=== PATIENT | female | born 1990 | race Caucasian/White ===

== ENCOUNTER 2017-08-22 03:51 | Emergency (ER) | payer OTHER ==
[2017-08-22] MEDS ORDERED: Metoclopramide IV* 5 MG/ML 2 ML VIAL IV ONE (04:12)
[2017-08-22] MEDS ORDERED: Ketorolac INJ* 30 MG/ML 1 ML VIAL IV ONE (04:12)
[2017-08-22] MEDS ORDERED: NS 0.9% 1000 ML* 1,000 ML IV ONE (04:12)
[2017-08-22] MEDS ORDERED: Morphine INJ* 4 MG/ML 1 ML CARPUJECT IV ONE (04:16)
[2017-08-22 05:03] LABS: Hematocrit 40 % (35-47); Hemoglobin 13.5 g/dl (12.0-16.0); Mean Corpuscular HGB Conc 34 g/dl (31-36); Mean Corpuscular Hemoglobin 29 pg (27-31); Mean Corpuscular Volume 87 fL (80-97); Mean Platelet Volume 10 um3 (7.4-10.4); Red Cell Distribution Width 13 % (10.5-15); White Blood Count 10.6 10^3/ul (3.5-10.8)
[2017-08-22 05:14] LABS: ALT 18 U/L (7-52); Albumin 4.1 g/dL (3.2-5.2); Alkaline Phosphatase 59 U/L (34-104); BUN/Creatinine Ratio 14.9 (8-20); Blood Urea Nitrogen 10 mg/dL (6-24); C Reactive Protein < 1.00 mg/L (< 5.00); CO2 Carbon Dioxide 17 mmol/L (22-32); Calcium 9.4 mg/dL (8.6-10.3); Chloride 105 mmol/L (101-111); EGFR African American 134.8 (>60); EGFR Non-African American 104.8 (>60); Globulin 3.4 g/dL (2-4); Glucose 89 mg/dL (70-100); Sodium 134 mmol/L (133-145); Total Protein 7.5 g/dL (6.4-8.9)
[2017-08-22 05:18] LABS: Anion Gap 12 mmol/L (2-11)
[2017-08-22 05:37] LABS: Urine Bacteria 1+ (Absent); Urine Bilirubin Negative (Negative); Urine Glucose Negative (Negative); Urine Nitrite Negative (Negative)
[2017-08-22] MEDS ORDERED: Tamsulosin CAP* 0.4 MG PO ONE (06:27)
--- NOTE | 2017-08-22 06:40 | ED ---
Augusto Fermin Thomas, scribed for Nelson Kovacs MD on 08/22/17 at 0419 . Back Pain - HPI Summary HPI Summary: The pt is a 27 y/o F presenting to the ED c/o right flank pain starting at 16: 00 on 08/21/17. The pain radiates to her back and RLQ. Her pain has lessened since onset at 16:00. She took OTC medicine to no relief. Pt additionally c/o nausea, vomiting (2x), and SOB. Pt denies renal calculi. Her LNMP was one week ago. She has no surgical history. - History of Current Complaint Chief Complaint: EDFlankPain Stated Complaint: FLANK PAIN Hx Obtained From: Patient Onset/Duration: Lasting Hours - since 16:00 on 08/21/17, Still Present Back Pain Location: Is Diffuse, Radiates To - flank and RLQ Severity Currently: Moderate Pain Intensity: 8 Pain Scale Used: 0-10 Numeric Aggravating Symptom(s): Nothing Associated Signs And Symptoms: Positive: Abdominal Pain, Flank Pain, Other - nausea, vomitting, SOB, NEGATIVE: renal calculi - Allergies/Home Medications Allergies/Adverse Reactions: Allergies Allergy/AdvReac Type Severity Reaction Status Date / Time No Known Allergies Allergy Verified 08/22/17 03:58 PMH/Surg Hx/FS Hx/Imm Hx Previously Healthy: Yes Endocrine/Hematology History: Denies: Hx Diabetes Cardiovascular History: Denies: Hx Hypertension, Hx Myocardial Infarction Infectious Disease History: No Infectious Disease History: Denies: Traveled Outside the [place] in Last 30 Days - Family History Known Family History: Negative: Cardiac Disease, Hypertension, Diabetes - Social History Alcohol Use: Occasionally Hx Substance Use: No Substance Use Type: Reports: None Hx Tobacco Use: Yes Smoking Status (MU): Light Every Day Tobacco Smoker Review of Systems Negative: Fever Positive: Shortness Of Breath Positive: Abdominal Pain - RLQ, Vomiting - 2x, Nausea, Other - NEGATIVE: renal calculi All Other Systems Reviewed And Are Negative: Yes Physical Exam - Summary Physical Exam Summary: VITAL SIGNS: Reviewed. GENERAL: Patient is a well-developed and nourished female who is lying comfortable in the stretcher. Patient is not in any acute respiratory distress. HEAD AND FACE: No signs of trauma. No ecchymosis, hematomas or skull depressions. No sinus tenderness. EYES: PERRLA, EOMI x 2, No injected conjunctiva, no nystagmus. EARS: Hearing grossly intact. Ear canals and tympanic membranes are within normal limits. MOUTH: Oropharynx within normal limits. NECK: Supple, trachea is midline, no adenopathy, no JVD, no carotid bruit, no c- spine tenderness, neck with full ROM. CHEST: Symmetric, no tenderness at palpation LUNGS: Clear to auscultation bilaterally. No wheezing or crackles. CVS: Regular rate and rhythm, S1 and S2 present, no murmurs or gallops appreciated. ABDOMEN: The patient has mild RLQ tenderness. There is right CVA tenderness. No signs of distention. No rebound no guarding, and no masses palpated. Bowel sounds are normal. EXTREMITIES: FROM in all major joints, no edema, no cyanosis or clubbing. NEURO: Alert and oriented x 3. No acute neurological deficits. Speech is normal and follows commands. SKIN: Dry and warm Triage Information Reviewed: Yes Vital Signs On Initial Exam: Initial Vitals Temp Pulse Resp BP Pulse Ox 98.3 F 87 16 90/65 98 08/22/17 03:54 08/22/17 03:54 08/22/17 03:54 08/22/17 03:54 08/22/17 03:54 Vital Signs Reviewed: Yes - [place] Coma Scale Coma Scale Total: 15 Diagnostics - Vital Signs Vital Signs Temp Pulse Resp BP Pulse Ox 08/22/17 03:54 98.3 F 87 16 90/65 98 - Laboratory Result Diagrams: 08/22/17 04:50 08/22/17 05:47 Lab Statement: Any lab studies that have been ordered have been reviewed, and results considered in the medical decision making process. - CT CT Abdomen and Pelvis CT Interpretation: Positive (See Comments) - Kidneys: There is a mild right- sided hydronephrosis and uretal distension. The distal ureter is not well- visualized; however, a 3mm calcification in the right pelvis likely a flec a distal uteral stone. Dr. Kovacs has reviewed this report. CT Interpretation Completed By: ED Physician Back Pain Course/Dx - Course Assessment/Plan: The patient has right sided flank pain that radiates to back. There are signs of microscopic hematuria. CT Abdomen/Pelvis shows hydronephrosis. The patient will be discharged home to follow up with pairer inspector. - Diagnoses Provider Diagnoses: Renal colic, Right ureteral stone Discharge - Discharge Plan Condition: Stable Disposition: HOME Prescriptions: oxyCODONE/Acetamin 5/325 MG* [Percocet 5/325 TAB*] 1 tab PO Q6H PRN #14 tab MDD 4 PRN Reason: Pain Tamsulosin CAP* [Flomax CAP*] 0.4 mg PO BEDTIME #7 cap Referrals: No Primary Care Phys,NOPCP [Primary Care Provider] - The documentation as recorded by the Augusto duong Thomas accurately reflects the service I personally performed and the decisions made by , Nelson Kovacs MD.
[2017-08-22 06:43] VITALS: BP 115/52
--- NOTE | 2017-08-22 09:54 | RAD ---
INDICATION: RIGHT flank pain with associated nausea and vomiting. COMPARISON: No relevant prior exams available on the [facility] [place] PACS for comparison. TECHNIQUE: Multidetector CT images were obtained from the lung bases to the ischial tuberosities. Evaluation of the viscera is limited without IV contrast. Multiplanar reformation. REPORT: Unremarkable visualized inferior thorax. The liver, gallbladder, pancreas, and spleen are unremarkable. No CT abnormality of the upper GI, small bowel, diminutive appendix approximating the cecum, or colon evident. Negative for ascites, free air, or significant hernias. Normal adrenal glands. Mild RIGHT hydroureteronephrosis. The distal ureters not well visualized. Reference image 129, 3 mm RIGHT pelvic calcification may represent a distal ureteral stone or phlebolith. Negative for LEFT hydronephrosis. Unremarkable urinary bladder as well as the anteverted uterus and adnexal regions. Negative for lymphadenopathy within limits of noncontrast exam. Unremarkable dominant retroperitoneal vasculature. Physiologic distention of the IVC. Negative for suspicious osseous lesions. IMPRESSION: Mild RIGHT hydroureteronephrosis. Reference image 129, 3 mm RIGHT pelvic calcification may represent a distal ureteral stone or phlebolith.
== END 2017-08-22 06:53 | disposition home or self-care (01) ==
LOC: ED 03:51
DX: N20.2 Calculus of kidney with calculus of ureter (principal)
CPT/HCPCS: 36415; 74176; 80053; 81003; 81015; 84702; 85025; 86140; 87086; 96361; 96365; 96366; 96374; 96375; 99213; 99283